=== PATIENT | male | born 1960 | race Caucasian/White ===

== ENCOUNTER 2017-09-26 07:03 | Outpatient (CLI) | payer MEDICARE ==
--- OUTSIDE RECORDS SUMMARY | 2017-09-26 07:07 | XMS | Clinical Summary ---
:[address] [facility] Address [address] [place] [address] Phone Care Team Providers Name Role Phone , Primary Care Provider Unavailable Allergies No Known Allergies Current Medications Prescription Sig. Disp. Refills Start Date End Date Status apixaban (ELIQUIS) 5 Take 1 tablet 60 tablet 2 06/23/2017 Active mg Tab tablet (5 mg total) by mouth 2 (two) times daily. glipiZIDE Take 1 tablet 30 tablet 11 06/23/2017 06/23/20 Active (GLUCOTROL) 5 MG (5 mg total) 18 tablet by mouth every morning before breakfast. magnesium oxide Take 1 tablet 60 tablet 11 06/23/2017 06/23/20 Active (MAG-OX) 400 mg (400 mg total) 18 tablet by mouth 2 (two) times daily. pantoprazole Take 1 tablet 30 tablet 2 06/23/2017 Active (PROTONIX) 40 MG (40 mg total) tablet by mouth daily. pravastatin Take 1 tablet 30 tablet 11 06/23/2017 06/23/20 Active (PRAVACHOL) 40 MG (40 mg total) 18 tablet by mouth nightly. tacrolimus (PROGRAF) Take 3 180 capsule 2 06/23/2017 06/23/20 Active 0.5 MG capsule capsules (1.5 18 mg total) by mouth every 12 (twelve) hours. sulfamethoxazole-tri Take 1 tablet Active methoprim by mouth (BACTRIM,SEPTRA) daily. 400-80 mg per tablet mycophenolate Take 1,000 mg Active (CELLCEPT) 250 mg by mouth 2 capsule (two) times daily . amLODIPine (NORVASC) Take 1 tablet 90 tablet 3 07/01/2017 Active 5 MG tablet (5 mg total) by mouth daily. predniSONE Take 5 mg by Active (DELTASONE) 5 MG mouth daily. tablet ferrous sulfate 325 Take 325 mg by Active (65 FE) MG tablet mouth daily with breakfast . cholecalciferol Take 2,000 Active (VITAMIN D3) 1,000 Units by mouth unit tablet daily. valGANciclovir Take 2 tablets 60 tablet 6 08/05/2017 08/05/20 Active (VALCYTE) 450 mg (900 mg total) 18 tablet by mouth daily. docusate sodium Take 100 mg by Active (COLACE) 100 MG mouth 2 (two) capsule times daily. naloxegol 12.5 mg Take 1 tablet 30 tablet 2 06/23/2017 09/25/20 Discontinued Oral Tab tablet (12.5 mg 17 total) by mouth daily. theophylline Take 1 capsule 60 capsule 2 06/23/2017 09/25/20 Discontinued (STEFFANIE-24) 200 MG 24 (200 mg total) 17 hr capsule by mouth every 12 (twelve) hours. clotrimazole Place 10 mg 09/25/20 Discontinued (MYCELEX) 10 mg inside cheek 3 17 louisa (three) times daily. terbutaline Take 7.5 mg by 09/25/20 Discontinued (BRETHINE) 5 mg mouth 3 17 tablet (three) times daily. HYDROcodone-acetamin Take 1 tablet 09/25/20 Discontinued ophen (NORCO 5-325) by mouth every 17 5-325 mg per tablet 6 (six) hours as needed for Pain. terbutaline Take 1 tablet 0 09/25/2017 09/25/20 Discontinued (BRETHINE) 5 mg (5 mg total) 17 tablet by mouth 3 (three) times daily. Active Problems Problem Noted Date Hypophosphatemia 07/01/2017 Chronotropic incompetence 06/09/2017 Hyperglycemia 06/09/2017 Acute blood loss anemia 06/02/2017 S/P orthotopic heart transplant + DDKT (06/01) 06/01/2017 Last Assessment & Plan: He is doing well s/p cardiac and kidney transplant. He has no evidence of recurrent disease at this time. S/P kidney transplant 06/01/2017 Last Assessment & Plan: S/p kidney transplant from 06/01/2017. He is producing adequate amounts of urine and has no evidence of recurrent disease. Acute pulmonary insufficiency following thoracic surgery ([facility]) 06/01/2017 Last Assessment & Plan: Not on any O2, no SOB at rest -Continue to mobilize as tolerated Shock circulatory ([facility]) 06/01/2017 Acute hyperkalemia 06/01/2017 Metabolic acidosis 06/01/2017 Immunosuppressed status ([facility]) 06/01/2017 Last Assessment & Plan: He denies headaches or tremors with his immunosuppression. We will adjust his dose according to his levels. Cardiogenic shock ([facility]) 05/16/2017 Last Assessment & Plan: S/p cardiac transplant 05/31/17 On intra-aortic balloon pump assist 05/16/2017 Acute on chronic combined systolic (congestive) and diastolic (congestive) heart failure Cardiomyopathy, ischemic Last Assessment & Plan: S/p heart transplant (05/31/17) ESRD (end stage renal disease) ([facility]) Last Assessment & Plan: S/p kidney transplant (06/01/17) -reports good UOP CAD (coronary artery disease) Last Assessment & Plan: Continue medications as prescribed. Continue follow up with cardiology. Type 2 diabetes mellitus Last Assessment & Plan: Blood glucoses are controlled on current therapy. Continue current regimen. Hyperlipidemia Resolved Problems Problem Noted Date Resolved Date Awaiting organ transplant status 06/01/2017 Encounters Date Type Specialty Care Team Description 09/25/2017 Evaluation Transplant O'Deloris, Kidney transplanted Aurelia Urbano MD (Primary Dx) Qian Agee MD 09/25/2017 Follow-Up Transplant O'Aurelia Puentes MD Butkevich, Alexander, MD 09/25/2017 Orders Only Transplant O'Deloris, S/P kidney transplant Hepatology Aurelia Urbano MD 08/28/2017 Evaluation Transplant O'Deloris, Kidney transplanted Aurelia Urbano MD (Primary Dx) Yris Vick MD 08/28/2017 Orders Only Transplant O'Deloris, S/P kidney transplant Hepatology Aurelia Urbano MD 08/28/2017 Telephone Transplant Andres Follow-up Santana Shipley RN 08/27/2017 Abstract Transplant Santana Campos RN 08/27/2017 Abstract Transplant Krystal Naqvi 08/21/2017 Orders Only Lab H/O heart transplant ([facility]) (Primary Dx) 08/21/2017 Ancillary Orders Lab Arya Santana MD 08/07/2017 Telephone Transplant Jennifer Hill Appointment (change in M clinic appt) 08/05/2017 Evaluation Transplant O'Deloris, S/P kidney transplant Aurelia Urbano MD (Primary Dx) Oneida Moyer MD 08/05/2017 Orders Only Transplant O'Deloris, S/P kidney transplant Hepatology Aurelia Urbano MD 08/05/2017 Orders Only Transplant Mari aIsabel Willis RN 07/30/2017 Abstract Transplant Jennifer Hill 07/25/2017 Telephone Transplant Jennifer Hill Appointment (r/s appt M from this wk) 07/21/2017 Telephone Transplant Blanca Cuellar RN 07/18/2017 Telephone Transplant Irma Lawson, Follow-up Hepatology RN 07/15/2017 Orders Only Transplant David Mcdonnell S/P kidney transplant Brenda Lamar MD 07/15/2017 Evaluation Transplant David Mcdonnell S/P kidney transplant MD Brianda (Primary Dx) 07/15/2017 Evaluation Transplant David Mcdonnell S/P kidney transplant MD Brianda (Primary Dx);S/P orthotopic heart transplant + DDKT (06/01);Immunosuppressed status (HCC) 07/11/2017 Abstract Transplant Santana Campos RN 07/10/2017 Orders Only Lab H/O heart transplant (HCC) (Primary Dx) 07/10/2017 Ancillary Orders Lab Arya Santana MD 07/09/2017 Telephone Transplant Jennifer Hill Appointment (f/u M appts) 07/08/2017 Emergency Emergency Jonna Sheffield MD Hypophosphatemia Medicine (Primary Dx);S/P orthotopic heart transplant + DDKT (06/01) 07/08/2017 Follow-Up Transplant Max, Kriss on chronic MD Arya combined systolic (congestive) and diastolic (congestive) heart failure (HCC) (Primary Dx) 07/08/2017 Orders Only Transplant O'Deloris, S/P kidney transplant Hepatology Aurelia Urbano MD 07/08/2017 Documentation Transplant Tamra Matson, BHARATI 07/03/2017 Orders Only Transplant Jung, Sarkis Naveen, S/P kidney transplant Hepatology MD 07/03/2017 Telephone Transplant Meagan Schumacher Follow-up 07/02/2017 Telephone Transplant Tamra Matson, third helper Dose Change 07/01/2017 Emergency Emergency MorisSarkis Hypophosphatemia Medicine MD Juancarlos (Primary Dx) Jeovany Olivera MD 07/01/2017 Evaluation Transplant OIram S/P kidney transplant Aurelia Urbano MD (Primary Dx) Rhina Lepe MD 07/01/2017 Evaluation Transplant OIram, S/P kidney transplant Aurelia Urbano MD (Primary Lands, Kayla Dx);Cardiomyopathy, ELIA Chaudhry ischemic;ESRD (end stage renal disease) (HCC);Type 2 diabetes mellitus with retinopathy, without long-term current use of insulin, macular edema presence unspecified, unspecified laterality, unspecified retinopathy severity (HCC);Cardiogenic shock (HCC) 07/01/2017 Orders Only Transplant David Mcdonnell/P kidney transplant Hepatology MD Brianda 07/01/2017 Orders Only Transplant Santana Campos RN 07/01/2017 Ancillary Orders Lab Aurelia Maria MD 07/01/2017 Orders Only Transplant S/P kidney transplant Hepatology 06/27/2017 Orders Only Lab Max, Heart transplant MD Arya status (HCC) (Primary Dx) 06/27/2017 Abstract Transplant Santana Campos RN from Last 3 Months Immunizations Name Dates Previously Given Next Due SHINGLES VARICELLA (ZOSTAVAX) ZOSTER 07/11/2016 Social History Tobacco Use Types Packs/Day Years Used Date Never Smoker Smokeless Tobacco: Never Used Alcohol Use Drinks/Week oz/Week Comments No Sex Assigned at Date Recorded Not on file Last Filed Vital Signs Vital Sign Reading Time Taken Blood Pressure 137/98 09/25/2017 2:11 PM CDT Pulse 109 09/25/2017 2:11 PM CDT Temperature 36.5 C (97.7 F) 09/25/2017 2:11 PM CDT Respiratory Rate 18 09/25/2017 2:11 PM CDT Oxygen Saturation 98% 09/25/2017 2:11 PM CDT Inhaled Oxygen Concentration - - Weight 99.6 kg (219 lb 9.6 oz) 09/25/2017 2:11 PM CDT Height 195.6 cm (6' 5") 09/25/2017 2:11 PM CDT Body Mass Index 26.04 09/25/2017 2:11 PM CDT Plan of Treatment Health Maintenance Due Date Last Done Comments INFLUENZA VACCINE 08/24/2017 Implants Implanted Type Area Electronics Instructor Device Expiration Model / Identifier Date Serial / Lot Stent Uret Polaris [id number] - [id number] Uro Stent Left: [employer] 2019 [id number] / Implanted:Qty: 1 on 06/01/2017 by Cesar Prado MD Ureter SCI: UROLOGY/GYNE / COLOGY Results Urinalysis w/Microscopic + Reflex to Cul (09/25/2017 7:11 AM)Only the most recent of7 resultswithin the time period is included. Component Value Ref Range Color, UA Yellow Clarity, UA Clear Specific [place], UA 1.025 1.001 - 1.035 pH, UA 6.0 5.0 - 8.0 Protein, UA 10 mg/dL(A) Negative Glucose, UA Negative Negative Ketones, UA Negative Negative Bilirubin, UA Negative Negative Blood, UA Trace(A) Negative Nitrite, UA Negative Negative Leukocytes, UA Negative Negative Urobilinogen, UA 0.2 0.2 - 1.0 mg/dL RBC, UA 1 /HPF WBC, UA 1 /HPF Mucus Rare Squam Epithel, UA <1 /HPF Specimen Source Specimen Performing Laboratory Urine [facility] [address] [address] CBC with platelet count + automated diff (09/25/2017 7:11 AM)Only the most recent of8 resultswithin the time period is included. Component Value Ref Range WBC 4.2 3.5 - 10.5 K/L RBC 4.56(L) 4.63 - 6.08 M/L Hemoglobin 13.1(L) 13.7 - 17.5 GM/DL Hematocrit 41.8 40.1 - 51.0 % MCV 91.7 79.0 - 92.2 fL MCH 28.7 25.7 - 32.2 pg MCHC 31.3(L) 32.3 - 36.5 GM/DL RDW 14.3 11.6 - 14.4 % Platelets 166 150 - 450 K/CU MM MPV 9.5 9.4 - 12.4 fL nRBC 0 0 - 0 /100 WBC % Neutros 72 % % Lymphs 19 % % Monos 6 % % Eos 1 % % Baso 1 % # Neutros 3.03 1.78 - 5.38 K/L # Lymphs 0.79(L) 1.32 - 3.57 K/L # Monos 0.25(L) 0.30 - 0.82 K/L # Eos 0.06 0.04 - 0.54 K/L # Baso 0.05 0.01 - 0.08 K/L Immature Granulocytes-Relative 0 0 - 1 % Specimen Performing Laboratory Blood [address] [address] Tacrolimus Level (09/25/2017 7:11 AM)Only the most recent of7 resultswithin the time period is included. Component Value Ref Range Tacrolimus Lvl 5.0(L) 10.0 - 20.0 ng/mL Specimen Performing Laboratory Blood [address] [address] CBC w/PLT Count& Auto Differential (09/25/2017 7:11 AM)Only the most recent of8 resultswithin the time period is included. Specimen Performing Laboratory Blood [facility] ([facility]) Narrative The following orders were created for panel order CBC w/PLT Count & Auto Differential. Procedure Abnormality Status --------- ------ CBC with platelet count ...[[id number]]AbnormalFinal result Please view results for these tests on the individual orders. Phosphorus (09/25/2017 7:11 AM)Only the most recent of7 resultswithin the time period is included. Component Value Ref Range Phosphorus 2.8 2.3 - 4.7 mg/dL Specimen Performing Laboratory [address] [address] Lactate Dehydrogenase (LDH) (09/25/2017 7:11 AM)Only the most recent of7 resultswithin the time period is included. Component Value Ref Range LDH 208 125 - 220 U/L Specimen Performing Laboratory Blood [address] [address] Comprehensive Metabolic Panel (09/25/2017 7:11 AM)Only the most recent of7 resultswithin the time period is included. Component Value Ref Range Protein, Total 6.3 6.0 - 8.3 gm/dL Albumin 3.9 3.5 - 5.0 g/dL Alkaline Phosphatase 129 40 - 150 U/L Total Bilirubin 0.6 0.2 - 1.2 mg/dL Sodium 140 136 - 145 meq/L Potassium 4.1 3.5 - 5.1 meq/L Chloride 108(H) 98 - 107 meq/L CO2 26 22 - 29 meq/L BUN 22(H) 7 - 21 mg/dL Creatinine 0.77 0.57 - 1.25 mg/dL Glucose 103 70 - 105 mg/dL Calcium 9.8 8.4 - 10.2 mg/dL AST 14 5 - 34 U/L ALT 16 6 - 55 U/L EGFR 104Comment:ESTIMATED GFR IS NOT ACCURATE mL/min/1.73 sq m CREATININE CLEARANCE IN PREDICTING GLOMERULAR FILTRATION RATE. ESTIMATED GFR IS NOT APPLICABLE FOR DIALYSIS PATIENTS. Specimen [place] [address] BK virus PCR, plasma Once every 3 Months (08/28/2017 7:05 AM)Only the most recent of2 resultswithin the time period is included. Component Value Ref Range BK Virus PCR, Plasma Negative or below the linear range of the assay (<1,000 copies/mL) Specimen Performing Laboratory Blood [address] [address] Narrative Patients may have replicating BK Virus which is of no clinical significance. Viral load measurements are helpful to identify BK Virus replication of potential clinical significance.Consensus recommendations have been published of threshold values for the presumptive diagnosis of polyomavirus-associated nephropathy ( Transplantation 2005;79:4630-8774). A BK Virus load greater than 5,000-10,000 copies/mL in the plasma is consistent with the presumptive diagnosis of polyoma-associated nephropathy in renal transplant recipients. BK Virus DNA was assessed using quantitative polymerase chain reaction and fluorescent monitoring of a specific hybridized probe.Genetic variation and other factors can affect the accuracy of nucleic acid testing.Therefore, the results should be interpreted in light of clinical data. This test was developed and its performance characteristics determined by the [facility] Pathology Department, Section of Molecular Pathology. It has not been cleared or approved bythe U.S. Food and Drug Administration (FDA). Since FDA approval is not required for clinical use of the test, validation was done as required by the Clinical Laboratory Improvement Amendments of 1988. Tissue Exam (08/21/2017 4:52 PM)Only the most recent of3 resultswithin the time period is included. Component Value Ref Range Case Report Surgical Pathology Report Case: [id number] Authorizing Provider:Arya Santana MD Collected: 08/21/20171651 [facility] Patient LabReceived: 08/21/20171651 Pathologist: Jori Ledbetter MD Specimen:Heart, HEART TRANSPLANT DIAGNOSIS HEART, RIGHT VENTRICLE, BIOPSY: MILD ACUTE CELLULAR REJECTION (ISHLT 1R) C4D IMMUNOFLUORESCENCE IS NEGATIVE (AMR 0) Signing Pathologist Direct Phone Line: [phone] COMMENT The preliminary results were reported to the heart sports coordinator on 08/22/17 at 11:15 am. The final results were reported to the heart sports coordinator voicemail on 08/22/17 at 4:49 pm. CPT Code(s) 32620; 36164 CLINICAL HISTORY Status post heart transplant SPECIMEN SOURCE RV biopsy GROSS DESCRIPTION Received in formalin labeled with the patient's information only are three dark ramirez irregular fragments of soft tissue measuring 0.2 x 0.3 x 0.1 cm in aggregate. The specimen is entirely submitted incassette A1. Also received in saline is labeled with the patient's information only is a 0.3 cm in greatest dimension dark brown irregular fragment of soft tissue which is frozen and entirely submitted for immunofluorescence study. DB/pl MICROSCOPIC DESCRIPTION Performed Specimen Performing Laboratory Tissue - Heart [address] [address] Urine culture (07/15/2017 8:59 AM)Only the most recent of2 resultswithin the time period is included. Component Value Ref Range Result 90-99,000 col/mL Enterobacter aerogenes(A) Specimen Performing Laboratory Urine - Urine, Unspecified Source [address] [address] Narrative Enterobacter aerogenes: High Level Case (AmpC) Organism Antibiotic Method Susceptibility Enterobacter aerogenes Amikacin 4: Susceptible Enterobacter aerogenes Aztreonam >=64: Resistant Enterobacter aerogenes Cefepime >=64: Resistant Enterobacter aerogenes Cefoxitin >=64: Resistant Enterobacter aerogenes Ceftazidime >=64: Resistant Enterobacter aerogenes Ceftriaxone >=64: Resistant Enterobacter aerogenes Ertapenem <=0.5: Susceptible Enterobacter aerogenes Gentamicin >=16: Resistant Enterobacter aerogenes Levofloxacin 4: Resistant Enterobacter aerogenes Meropenem <=0.25: Susceptible Enterobacter aerogenes Nitrofurantoin 64: Resistant Enterobacter aerogenes Piperacillin + Tazobactam >=128: Resistant Enterobacter aerogenes Tetracycline >=16: Resistant Enterobacter aerogenes Tobramycin >=16: Resistant Enterobacter aerogenes Trimethoprim + Sulfamethoxazole >=320: Resistant RHYTHM STRIP - SCAN (07/11/2017 7:42 PM)Basic metabolic panel (Na, K+, Cl, CO2 , Glu, Ca, BUN, Cr) (07/08/2017 1:37 PM) Component Value Ref Range Sodium 137 136 - 145 meq/L Potassium 4.1 3.5 - 5.1 meq/L Chloride 107 98 - 107 meq/L CO2 20(L) 22 - 29 meq/L BUN 18 7 - 21 mg/dL Creatinine 0.97 0.57 - 1.25 mg/dL Glucose 148(H) 70 - 105 mg/dL Calcium 9.5 8.4 - 10.2 mg/dL EGFR 79Comment:ESTIMATED GFR IS NOT ACCURATE CREATININE mL/min/1.73 sq m CLEARANCE IN PREDICTING GLOMERULAR FILTRATION RATE. ESTIMATED GFR IS NOT APPLICABLE FOR DIALYSIS PATIENTS. Specimen Performing Laboratory Blood [address] [address] ECG 12 lead (07/08/2017 10:23 AM) Specimen Performing Laboratory [facility] Narrative Ventricular Rate 113 BPM Atrial Rate 113 BPM P-R Interval 126 ms QRS Duration 78 ms Q-T Interval 324 ms QTC Calculation(Bazett) 444 ms P [place] 27 degrees R [place] -86 degrees T [place] 63 degrees Sinus tachycardia Left axis deviation Low voltage QRS Incomplete right bundle branch block Possible anterolateral infarct, age undetermined Inferior infarct (cited on or before 06-JUN-2017) T wave inversion anterior leads: secondary to iRBBB? postischemic changes? Abnormal ECG When compared with ECG of 06-JUN-2017 06:44, Sinus rhythm has replaced Junctional rhythm Incomplete right bundle branch block now present Borderline criteria for anterolateral infarctare now Present Questionable change in initial forces of Inferior leads T wave inversion now seen anterior leads Confirmed by MD KAN, LEWIS ([id number]) on 07/09/2017 6:16:08 AM Procedure Note Interface, External Ris In - 07/09/2017 6:16 AM CDT Ventricular Rate 113 BPM Atrial Rate 113 BPM P-R Interval 126 ms QRS Duration 78 ms Q-T Interval 324 ms QTC Calculation(Bazett) 444 ms P [place] 27 degrees R [place] -86 degrees T [place] 63 degrees Sinus tachycardia Left axis deviation Low voltage QRS Incomplete right bundle branch block Possible anterolateral infarct , age undetermined Inferior infarct (cited on or before 06-JUN-2017) T wave inversion anterior leads: secondary to iRBBB? postischemicchanges? Abnormal ECG When compared with ECG of 06-JUN-2017 06:44, Sinus rhythm has replaced Junctional rhythm Incomplete right bundle branch block now present Borderline criteria for anterolateral infarct are now Present Questionable change in initial forces of Inferior leads T wave inversion now seen anterior leads Confirmed by MD KAN, LEWIS ([id number]) on 07/09/2017 6:16:08 AM from Last 3 Months
--- NOTE | 2017-09-26 10:22 | MRI ---
MRI LUMBAR SPINE NONCONTRAST: HISTORY: Low back pain without radiculopathy. COMPARISON: None. FINDINGS: Radiographs are not available for direct correlation; therefore, the lowest lumbar type vertebra lizbeth l be designated as L5, with the remainder numbered accordingly. The conus medullaris has a normal a ppearance. There is desiccation of all remaining vertebral disks. Images, including the retroperit oneum, show cysts arising from the cortex of the kidneys. There is also atrophy of the renal cortex . T12-L1: Mild osteophytosis is present. The central canal and neural foramina are patent. L1-L2: There is disk space narrowing. Posterior disk bulge, along with facet joint hypertrophy and ligamentous thickening, result in mild to moderate stenosis of the central canal. There is moderat e right and mild to moderate left foraminal stenoses. L2-L3: There is disk space narrowing. Posterior disk bulge, along with facet joint hypertrophy and ligamentous thickening, result in mild stenosis of the central canal and each neural foramen. L3-L4: Significant disk space narrowing is present. Posterior disk bulge, along with facet joint h ypertrophy and ligamentous thickening, result in severe stenosis of the central canal and each neura l foramen. L4-L5: Osteophytosis is present. The thecal sac is patent. There is mild right and moderate left foraminal stenosis. L5-S1: Mild osteophytosis is present. The central canal and neural foramina are patent. IMPRESSION: Multilevel degenerative changes throughout the lumbar spine, with central canal and foraminal stenos es, most severe at the L3-L4 level, as detailed above. POS: FRANDY
== END 2017-09-26 07:04 | disposition home or self-care (01) ==
LOC: MRI 07:03
PROVIDERS: ATTEND Nurse Practitioner Family
DX: M47.816 Spondylosis without myelopathy or radiculopathy, lumbar region (principal); M48.061 Spinal stenosis, lumbar region without neurogenic claudication; M86.171 Other acute osteomyelitis, right ankle and foot
CPT/HCPCS: 72148

== ENCOUNTER 2017-11-21 06:45 | Outpatient (CLI) | payer MEDICARE | END 2017-11-21 06:46 | disposition home or self-care (01) | LOC: BICMRI 06:45 | PROVIDERS: ATTEND Emergency Medicine Sports Medicine | DX: M75.122 Complete rotator cuff tear or rupture of left shoulder, not specified as traumatic (principal); M19.012 Primary osteoarthritis, left shoulder; M67.814 Other specified disorders of tendon, left shoulder ==

== ENCOUNTER 2017-11-28 08:57 | Outpatient (CLI) | payer MEDICARE | END 2017-11-28 08:58 | disposition home or self-care (01) | LOC: BICMRI 08:57 | PROVIDERS: ATTEND Emergency Medicine Sports Medicine | DX: M47.22 Other spondylosis with radiculopathy, cervical region (principal); Z94.0 Kidney transplant status | CPT/HCPCS: 72141 ==

== ENCOUNTER 2018-01-20 14:01 | Day surgery (SDC) | payer MEDICARE ==
[2018-01-20 14:35] VITALS: BP 143/102
== END 2018-01-20 15:36 | disposition home or self-care (01) ==
LOC: ONC/OP 14:01
PROVIDERS: ATTEND Internal Medicine Nephrology
DX: D75.1 Secondary polycythemia (principal); I12.0 Hypertensive chronic kidney disease with stage 5 chronic kidney disease or end stage renal disease; E11.22 Type 2 diabetes mellitus with diabetic chronic kidney disease; N18.6 End stage renal disease; E11.40 Type 2 diabetes mellitus with diabetic neuropathy, unspecified; I25.10 Atherosclerotic heart disease of native coronary artery without angina pectoris; Z95.1 Presence of aortocoronary bypass graft; Z99.2 Dependence on renal dialysis; Z95.810 Presence of automatic (implantable) cardiac defibrillator; Z98.890 Other specified postprocedural states
CPT/HCPCS: 99195

== ENCOUNTER 2018-07-08 13:41 | Outpatient (CLI) | payer MEDICARE | END 2018-07-08 13:42 | disposition home or self-care (01) | LOC: BICRAD 13:41 | PROVIDERS: ATTEND Specialist | DX: M47.812 Spondylosis without myelopathy or radiculopathy, cervical region (principal); M43.12 Spondylolisthesis, cervical region | CPT/HCPCS: 36415; 72050; 72141; 80053; 80197; 81003; 83615; 84100; 85025 ==

== ENCOUNTER 2018-10-28 11:51 | Outpatient (CLI) | payer MEDICARE ==
[2018-10-28 13:03] LABS: Hemoglobin 17.4 g/dL (14.0-18.0); Mean Corpuscular HGB CONC 32.9 g/dL (32.0-36.0); Mean Corpuscular Hemoglobin 29.7 pg (27.0-31.0); Mean Corpuscular Volume 90.1 fL (78.0-98.0); Mean Platelet Volume 7.2 fL (7.4-10.4); Platelet Count 186 thou/uL (130-400); RBC Distribution Width 12.7 % (11.5-14.5); Red Blood Cell (RBC) Count 5.86 mill/uL (4.70-6.10); White Blood Cell (WBC) Count 10.5 thou/uL (4.8-10.8)
[2018-10-28 13:32] LABS: Anion Gap 10 mmol/L (10-20); BUN (Urea Nitrogen) 17 mg/dL (8.4-25.7); Calc. Creatinine Clearance 0 mL/min (70-130); Calcium 9.7 mg/dL (7.8-10.44); Carbon Dioxide 28 mmol/L (22-29); Chloride 102 mmol/L (98-107); Estimated GFR-MDRD 68; Glucose 181 mg/dL (70-105); Potassium 4.8 mmol/L (3.5-5.1); Sodium 135 mmol/L (136-145)
--- NOTE | 2018-10-28 22:08 | EKG ---
Test Reason : Blood Pressure : / mmHG Vent. Rate : 091 BPM Atrial Rate : 091 BPM P-R Int : 152 ms QRS Dur : 098 ms QT Int : 330 ms P-R-T Axes : 026 -81 057 degrees QTc Int : 405 ms Normal sinus rhythm Left axis deviation Incomplete right bundle branch block Inferior infarct , age undetermined Anterolateral infarct , age undetermined Abnormal ECG When compared with ECG of 22-DEC-2016 19:55, Sinus rhythm has replaced Electronic ventricular pacemaker Confirmed by Mario Alberto FAUST ([id number]) on 10/28/2018 10:07:42 PM Referred By: YUMI Confirmed By:Mario Alberto FAUST
== END 2018-10-28 11:52 | disposition home or self-care (01) ==
LOC: LABBT 11:51
PROVIDERS: ATTEND Neurological Surgery
DX: Z01.818 Encounter for other preprocedural examination (principal); M50.30 Other cervical disc degeneration, unspecified cervical region
CPT/HCPCS: 80048; 85027; 93005; 93010

== ENCOUNTER 2018-10-29 05:52 | Day surgery (SDC) | payer MEDICARE ==
[2018-10-28 11:59] VITALS: BMI 27.6
[2018-10-29] MEDS ORDERED: Sodium Chloride 0.9% 10 ML ONE (06:30)
[2018-10-29] MEDS ORDERED: CEFAZOLIN 2 GM/50 ML BAG ONE (06:31)
[2018-10-29] MEDS ORDERED: HYDROmorphone 0.5 MG/0.5 ML SYRINGE ONE (08:13)
[2018-10-29] MEDS ORDERED: SUGAMMADEX SODIUM 200 MG/2 ML VIAL ONE (08:16)
[2018-10-29] MEDS ORDERED: Dexamethasone 20 MG/5 ML VIAL ONE (11:41)
[2018-10-29] MEDS ORDERED: Glycopyrrolate 0.2 MG/ML 5 ML SYRINGE ONE (11:41)
[2018-10-29] MEDS ORDERED: PROPOFOL 200 MG/20 ML VIAL ONE (11:41)
[2018-10-29] MEDS ORDERED: Lidocaine 1% PF 5 ML VIAL ONE (11:41)
[2018-10-29] MEDS ORDERED: Ondansetron PF 4 MG/2 ML Vial ONE (11:41)
[2018-10-29] MEDS ORDERED: Metoprolol Tartrate 5 MG/5 ML VIAL ONE (11:41)
--- NOTE | 2018-10-30 09:29 | OP ---
DATE OF PROCEDURE: 10/29/2018 WEED SPRAYER: Boo. PROCEDURES: 1. Anterior cervical diskectomy C6-C7, interbody arthrodesis. 2. Biomechanical device, local morselized autograft, demineralized bone matrix, anterior titanium fixation C6-C7. DESCRIPTION OF PROCEDURE: The patient was brought to the operating room and intubated. He was positioned in supine, head fixed and with gel-filled dounut. An incision was made in the right pre-cervical area and dissected medial to the sternocleidomastoid muscle. We identified the anterior cervical spine and the level was confirmed by x-ray. We placed distraction across the disk and using the operating microscope and microdissection techniques, completely removed the intervertebral disk at C6-C7 and there was a very large herniation at left C6-C7 migrated inferiorly. With some difficulty, it was removed in multiple fragments. A complete decompression was achieved. The wound was then extensively irrigated and the bony endplates were decorticated for the first arthrodesis. An appropriate-sized intervertebral biomechanical PEEK device was on the field, filled demineralized bone matrix, local morselized autograft and tapped in place securely at C6-C7. Next, an anterior plate was brought on the field and secured to C6 and C7 using two 40 mm screws at each level. The wound was then extensively irrigated, maximum hemostasis was secured and the wound was closed in anatomic layers. Job ID: [id number]
== END 2018-10-29 10:47 | disposition home or self-care (01) ==
LOC: SDC 05:52
PROVIDERS: ATTEND Neurological Surgery
PROC: 0RG10A0 Fusion of Cervical Vertebral Joint with Interbody Fusion Device, Anterior Approach, Anterior Column, Open Approach (ICD-10-PCS; principal; 2018-10-29)
DX: M50.223 Other cervical disc displacement at C6-C7 level (principal); M50.31 Other cervical disc degeneration, high cervical region; M50.322 Other cervical disc degeneration at C5-C6 level; I42.9 Cardiomyopathy, unspecified; I10 Essential (primary) hypertension; E11.9 Type 2 diabetes mellitus without complications; E78.5 Hyperlipidemia, unspecified; Z94.1 Heart transplant status; Z94.0 Kidney transplant status; Z79.52 Long term (current) use of systemic steroids; Z79.4 Long term (current) use of insulin; Z79.82 Long term (current) use of aspirin; Z79.899 Other long term (current) drug therapy
CPT/HCPCS: 20930; 20936; 22551; 22853; 76001; 82962; C1713; C1776; 36416; J1100; J1170; J2001; J2405; J2704; J3490

== ENCOUNTER 2018-11-11 15:46 | Outpatient (CLI) | payer MEDICARE ==
--- NOTE | 2018-11-11 17:31 | RAD ---
THREE VIEWS OF THE CERVICAL SPINE: 11/11/18 COMPARISON: None. HISTORY: Status post neck surgery. Postoperative followup. COMPARISON: 08/09/15. FINDINGS: Three views of the cervical spine shows the patient to be status post anterior fusion of C6 and C7 wi th a plate and screws. An intervening disc spacer is seen in the disc space. No prevertebral soft tis awais swelling is seen. Vertebral bodies demonstrate normal alignment without subluxation. IMPRESSION: Postsurgical changes of the cervical spine without evidence of complication. POS: FRANDY
== END 2018-11-11 15:47 | disposition home or self-care (01) ==
LOC: TBSIIMAG 15:46
PROVIDERS: ATTEND Neurological Surgery
DX: M50.30 Other cervical disc degeneration, unspecified cervical region (principal); Z98.890 Other specified postprocedural states
CPT/HCPCS: 72040

== ENCOUNTER 2020-01-03 07:25 | Day surgery (SDC) | payer MEDICARE ==
[2019-12-31 15:21] VITALS: BMI 27.6
[2020-01-03 08:17] VITALS: BP 141/98; TEMP 98.4
--- NOTE | 2020-01-03 08:58 | RAD ---
CERVICAL MYELOGRAM: EXPOSURE: 0.7 minutes, 269.6 mGy*^m2. HISTORY: Cervical pain.. Degenerative disc disease. FINDINGS: Two-view testing machine operator lumbar spine radiograph demonstrates 5 lumbar-type vertebrae. Lumbar spine vertebral b yosef height is maintained. No fracture. Vacuum disc phenomenon with sclerosis and osteophyte formation at L3-L4. Straightening of lumbar lordosis. No spondylolisthesis or spondylolysis. Atherosc lerosis of the aorta and iliac vessels is noted. Visualized bony pelvis and sacrum are unremarkable. Two-view testing machine operator cervical spine radiograph demonstrates an anterior fusion plate at C6-C7. No perihardw are lucency. There is a C6-C7 disc prosthesis. Grade 1 anterolisthesis of C3 upon C4 and C5 upon C6. On the AP projection, multilevel facet arthropa thy. Sternotomy wires are noted. A portion of a defibrillator lead is identified. Atherosclerosis of the aorta. Successful lumbar puncture. A total of 9 cc of Isovue-M 370 contrast was administered at the L2-L3 le shan. No immediate or postprocedure complications. TECHNIQUE: Consent obtained to perform a lumbar puncture for cervical myelogram. Patient's back was evaluated. T he L2-L3 level was deemed appropriate. Skin was prepped and draped in a sterile fashion. 1% lidocaine, buffered with was used for local anesthesia. Under fluoroscopic guidance, a 22-gauge spi nal needle was advanced into the CSF space. There is prompt flow of clear CSF via the hub of the needle. A total of 370 was administered. Patient tolerated the procedure well. No immediate or postpr ocedure complications. IMPRESSION: Successful lumbar puncture for cervical myelogram. Transcribed Date/Time: 01/03/2020 9:42 AM
--- NOTE | 2020-01-03 09:40 | CT ---
POSTMYELOGRAM CERVICAL SPINE CT: HISTORY: Cervical degenerative disc disease. Cervical pain. COMPARISON: None. TECHNIQUE: Cervical spine CT is performed in the axial length. Three-dimensional reformatted images are submitte d FINDINGS: No craniocervical dissociation. Appropriate alignment of the lateral masses of C1 and C2. Intact odon toid process. Uncomplicated cervical fusion at C6-C7. No perihardware lucency. C6-C7 disc prosthesis is identified. Near complete fusion of the disc space. No cervical spine fractures. Spondylolisthesis: 3.7 mm of anterolisthesis of C3 upon C4. Visualized soft tissue neck structures are grossly unremarkable. Large calcification in the right thy roid lobe. 1.1 x 0.9 cm hypodensity in the left thyroid lobe. No evidence of lymphadenopathy. Upper mediastinum and lung apices are unremarkable. C2-C3: Central disc herniation. No significant central canal stenosis or significant neural foraminal . C3-C4: Vacuum disc phenomenon with moderate loss of disc space height. Broad-based disc-osteophyte co mplex does cause mass effect upon the cervical cord. Moderate central canal stenosis. Moderate bilateral foraminal narrowing due to uncovertebral and to a lesser extent facet hypertrophy. C4-C5:Broad-based disc-osteophyte complex with a central herniation. There is mass effect upon the ce rvical cord. Moderate central canal stenosis. Mild bilateral foraminal due to uncovertebral hypertrophy. C5-C6: Broad-based disc-osteophyte complex with a central herniation. There is disc desiccation. Ther e is deformity of the cervical cord. Moderate central canal stenosis. Bilaterally, neural foramina are patent. C6-C7:Fusion with prosthesis. Broad-based osteophyte ridge without significant central canal stenosis . Bilaterally, neural foramina are patent. C7-T1: No significant central canal stenosis. Bilaterally, neural foramina are patent. IMPRESSION: 1. Degenerative changes of the cervical spine as detailed above. 2. Postsurgical changes of the cervical spine as detailed above. Transcribed Date/Time: 01/03/2020 9:46 AM
[2020-01-03] MEDS ORDERED: Iopamidol-M 300 61% 15 ML VIAL ONE (16:01)
== END 2020-01-03 10:00 | disposition home or self-care (01) ==
LOC: RAD 07:25
PROVIDERS: ATTEND Neurological Surgery
PROC: B01B1ZZ Fluoroscopy of Spinal Cord using Low Osmolar Contrast (ICD-10-PCS; principal; 2020-01-03)
DX: M50.21 Other cervical disc displacement, high cervical region (principal); M43.12 Spondylolisthesis, cervical region; E11.9 Type 2 diabetes mellitus without complications; E78.00 Pure hypercholesterolemia, unspecified; I10 Essential (primary) hypertension; N19 Unspecified kidney failure; Z79.84 Long term (current) use of oral hypoglycemic drugs; Z79.82 Long term (current) use of aspirin; Z79.899 Other long term (current) drug therapy
CPT/HCPCS: 62302; 72126; Q9967

== ENCOUNTER 2020-01-14 08:40 | Day surgery (SDC) | payer MEDICARE ==
[2020-01-13 11:57] VITALS: BMI 28.2
[2020-01-14] MEDS ORDERED: PROPOFOL 200 MG/20 ML VIAL ONE (09:44)
--- NOTE | 2020-01-14 12:01 | OP ---
DATE OF PROCEDURE: 01/14/2020 PREPROCEDURE DIAGNOSES: 1. Reflux, proton pump inhibitor dependent for the past 3 months, all symptoms resolved with proton pump inhibitor. 2. No dysphagia. 3. History of sleeve gastrectomy. 4. History of a heart and kidney transplant. POSTPROCEDURE DIAGNOSES: 1. Small hiatal hernia. 2. Otherwise normal gastric sleeve anatomy. 3. No signs of Aguilar's esophagus or esophagitis. RECOMMENDATIONS: 1. PPI therapy daily for control of reflux symptoms. 2. Antireflux regimen, small frequent meals. No large meals close to bedtime, elevate head of bed. 3. The patient does not smoke or drink alcohol. 4. Follow up in my office p.r.n. ANESTHESIA: TIVA. PROCEDURE IN DETAIL: After the patient was informed of the risks, benefits, and possible complications of endoscopy including perforation, bleeding, reaction to medication, and aspiration, informed consent was obtained. The patient was brought to the endoscopy suite, where he was sedated in gradual fashion. Once he was comfortable, a bite block was placed inside the orifice. The endoscope was advanced to the esophagus, stomach, and second and third portions of the duodenum and was slowly removed. The esophagus was normal. There was a normal GE junction. There was no evidence of inflammation or esophagitis. There was no evidence of Aguilar's esophagus. In the stomach, there was a small hiatal hernia, probably about 2 cm in length. There was no evidence of strictures or rings. The gastric lumen was consistent with previous sleeve gastrectomy. There was no evidence of strictures, retained gastric contents, or obstruction. The pyloric channel was normal. The duodenum was normal in the 3rd portion. The scope was removed. The patient tolerated the procedure well. There were no complications. Job ID: [id number]
== END 2020-01-14 12:10 | disposition home or self-care (01) ==
LOC: SDC 08:40
PROVIDERS: ATTEND Internal Medicine Gastroenterology
PROC: 0DJ08ZZ Inspection of Upper Intestinal Tract, Via Natural or Artificial Opening Endoscopic (ICD-10-PCS; principal; 2020-01-14)
DX: K21.9 Gastro-esophageal reflux disease without esophagitis (principal); K44.9 Diaphragmatic hernia without obstruction or gangrene; I11.0 Hypertensive heart disease with heart failure; I50.9 Heart failure, unspecified; I25.10 Atherosclerotic heart disease of native coronary artery without angina pectoris; Z79.4 Long term (current) use of insulin; Z79.52 Long term (current) use of systemic steroids; Z79.82 Long term (current) use of aspirin; Z79.899 Other long term (current) drug therapy; Z87.442 Personal history of urinary calculi; Z94.0 Kidney transplant status; Z94.1 Heart transplant status; Z95.1 Presence of aortocoronary bypass graft; Z95.810 Presence of automatic (implantable) cardiac defibrillator; Z98.84 Bariatric surgery status
CPT/HCPCS: 36416; J2704

== ENCOUNTER 2020-10-13 06:47 | Outpatient (CLI) | payer MEDICARE ==
[2020-10-14 03:15] LABS: SARS-CoV-2 MS2 Positive; SARS-CoV-2 N Gene Negative; SARS-CoV-2 S Gene Negative; SARS-CoV-2 by NAA Not Detected (NotDetected); SARS-CoV-2 orf1ab Negative
== END 2020-10-13 06:48 | disposition home or self-care (01) ==
LOC: LABBT 06:47
PROVIDERS: ATTEND Podiatrist Foot & Ankle Surgery
DX: Z01.812 Encounter for preprocedural laboratory examination (principal); Z20.828 Contact with and (suspected) exposure to other viral communicable diseases
CPT/HCPCS: 87635; U0003

== ENCOUNTER 2020-10-18 09:11 | Day surgery (SDC) | payer OTHER ==
[2020-10-17 09:09] VITALS: BMI 28.2
[2020-10-18 09:54] LABS: #Eosinphils 0.2 thou/uL (0.0-0.7); #Lymphocytes 0.8 thou/uL (1.20-3.40); #Monocytes 0.7 thou/uL (0.11-0.59); #Neutrophils 7.9 thou/uL (1.40-6.50); %Basophils 0.3 % (0.0-1.0); %Eosinophils 1.9 % (0.0-10.0); %Monocytes 7.1 % (0.0-10.0); %Neutrophils 82.7 % (42.0-75.0); Hemoglobin 14.3 g/dL (14.0-18.0); Mean Corpuscular HGB CONC 32.6 g/dL (32.0-36.0); Mean Corpuscular Hemoglobin 30.4 pg (27.0-31.0); Mean Corpuscular Volume 93.2 fL (78.0-98.0); Mean Platelet Volume 7.3 fL (7.4-10.4); Platelet Count 166 thou/uL (130-400); RBC Distribution Width 12.6 % (11.5-14.5); Red Blood Cell (RBC) Count 4.69 mill/uL (4.70-6.10); White Blood Cell (WBC) Count 9.6 thou/uL (4.8-10.8)
[2020-10-18 10:20] LABS: Anion Gap 12 mmol/L (10-20); BUN (Urea Nitrogen) 28 mg/dL (8.4-25.7); Calc. Creatinine Clearance 112 mL/min (70-130); Calcium 9.7 mg/dL (7.8-10.44); Carbon Dioxide 29 mmol/L (23-31); Chloride 103 mmol/L (98-107); Estimated GFR-MDRD 78; Glucose 164 mg/dL (80-115); Potassium 4.1 mmol/L (3.5-5.1); Sodium 140 mmol/L (136-145)
[2020-10-18] MEDS ORDERED: Bupivacaine PF 0.5% 30 ML VIAL ONE (11:32)
[2020-10-18] MEDS ORDERED: Midazolam HCl 2 mg/2 ml Vial ONE (11:37)
[2020-10-18] MEDS ORDERED: hydrALAZINE 20 MG/ML VIAL ONE (13:49)
--- NOTE | 2020-10-18 14:21 | RAD ---
LEFT FOOT: 10/18/20 Three views. HISTORY: Postop follow-up. Comparison made to left foot films from 2016. FINDINGS: There has been amputation of the fifth toe which was present on the prior exam. Deformity of the fift h metatarsal is stable from the prior exam. There has been excision of the distal phalanx of the thir d and fourth digits, stable from prior exam. Postoperative changes are seen at the PIP joints of the first and second digits, new since the prior exam. Degenerative changes at the MTP joints, tarsometatarsal joints, and intertarsal joints all appear sta ble. Spurring from the calcaneus appears stable. Deformity of the distal third metatarsal is stable i n appearance. IMPRESSION: Degenerative and postoperative changes of the left foot as described. POS: AH
--- NOTE | 2020-10-18 17:44 | OP ---
DATE OF PROCEDURE: 10/18/2020 PREOPERATIVE DIAGNOSES: Chronic ulceration of left great toe, contracted digits 1 and 2, left foot. POSTOPERATIVE DIAGNOSES: Chronic ulceration of left great toe, contracted digits 1 and 2, left foot. PROCEDURES PERFORMED: 1. Arthrodesis of the proximal interphalangeal joint, great toe, left foot. 2. Arthrodesis of proximal interphalangeal joint, second digit, left foot. ANESTHESIA: MAC with local foot block. HEMOSTASIS: Esmarch bandage and ankle tourniquet at 250 mmHg. ESTIMATED BLOOD LOSS: Less than 20 mL. MATERIALS: Two [id number] compression misty, one Tracy 28 headless compression screw 3.0 mm x 30 mm, 2-0 Vicryl, 4-0 Vicryl, and 3-0 nylon. INJECTABLES: 20 mL of 0.5% Marcaine plain. DESCRIPTION OF PROCEDURE: The patient was brought into the operating room and placed on the operating table in supine position. Well-padded pneumatic ankle tourniquet was placed on the patient's left ankle. Following administration of IV anesthesia, a local foot block was given utilizing 20 mL of 0.5% Marcaine plain. The foot was then scrubbed, prepped, and draped in usual aseptic manner. Esmarch bandage was used to exsanguinate the patient's left foot. The pneumatic ankle tourniquet was then inflated to 250 mmHg and increased to 300 mmHg, which did not provide adequate hemostasis, so an Esmarch bandage was used on the foot. Next, attention was then directed to the patient's left foot where a linear longitudinal incision was made over the patient's entire great toe. The incision was deepened to the level of bone with care being taken to retract all vital neurovascular structures. The joint was then prepped and two [id number] compression screws were then placed across the joint. Fluoroscopy was used to assure proper alignment. All alignment and correction were noted to be correct at this time. Next, the wound was irrigated with copious amounts of sterile normal saline mixture. The deep closure was performed utilizing 2-0 Vicryl. Subcuticular closure was performed utilizing 4-0 Vicryl and the skin was closed utilizing 3-0 nylon in a horizontal mattress suture pattern. Next, attention was then directed to the second digit where a transverse incision and tenotomy were performed at the proximal interphalangeal joint. The previously malunion was then broken utilizing a sagittal bone saw and a wedge of bone was then carefully resected straightening the digit. Next, utilizing techniques and principles of Jayna 28, a headless compression screw was driven across the proximal interphalangeal joint through an incision in the distal aspect of the digit. Fluoroscopy was used to assure proper alignment and correction. All were noted to be correct at this time. The wound was irrigated and sutured in the same technique as used in the previous incision. The foot was then cleaned and a light compressive dressing was placed about the patient's left foot on both incisions and Esmarch bandage was taken off and prompt hyperemic response was noted to all digits of the left foot. DISCHARGE SUMMARY: The patient tolerated the procedure and anesthesia and was transferred to the recovery room with vital signs stable and vascular status intact to all digits of the left foot. Following a period of postoperative monitoring, the patient is to be discharged home. Should he have any problems prior to the first postoperative appointment, he is advised to call or be seen within one week of the procedure. Job ID: [id number]
== END 2020-10-18 14:28 | disposition home or self-care (01) ==
LOC: SDC 09:11
PROVIDERS: ATTEND Podiatrist Foot & Ankle Surgery
PROC: 0SGQ04Z Fusion of Left Toe Phalangeal Joint with Internal Fixation Device, Open Approach (ICD-10-PCS; principal; 2020-10-18)
DX: E11.621 Type 2 diabetes mellitus with foot ulcer (principal); L97.529 Non-pressure chronic ulcer of other part of left foot with unspecified severity; I48.0 Paroxysmal atrial fibrillation; I13.2 Hypertensive heart and chronic kidney disease with heart failure and with stage 5 chronic kidney disease, or end stage renal disease; E11.22 Type 2 diabetes mellitus with diabetic chronic kidney disease; N18.6 End stage renal disease; I50.9 Heart failure, unspecified; E11.40 Type 2 diabetes mellitus with diabetic neuropathy, unspecified; I42.0 Dilated cardiomyopathy; E78.5 Hyperlipidemia, unspecified; G47.33 Obstructive sleep apnea (adult) (pediatric); E78.2 Mixed hyperlipidemia; Z79.4 Long term (current) use of insulin; Z79.52 Long term (current) use of systemic steroids; Z79.82 Long term (current) use of aspirin; Z79.899 Other long term (current) drug therapy; Z94.0 Kidney transplant status; Z94.1 Heart transplant status; Z95.1 Presence of aortocoronary bypass graft; Z89.422 Acquired absence of other left toe(s); Z95.810 Presence of automatic (implantable) cardiac defibrillator; Z98.84 Bariatric surgery status
CPT/HCPCS: 36415; 76000; 80048; 85025; 93005; 93010; J0360; J2250; J3370; J7030; S0020

== ENCOUNTER 2021-02-07 14:30 | Inpatient (IN) | payer BC ==
[2021-02-08 11:43] VITALS: BMI 29.7
[2021-02-12] MEDS ORDERED: Vancomycin 1.5 GRAM/300 ML BAG ONE (06:23)
[2021-02-12] MEDS ORDERED: Tranexamic Acid 1,000 MG/10 ML VIAL ONE (06:23)
[2021-02-12] MEDS ORDERED: Sodium Chloride 0.9% 100 ML ONE (06:24)
[2021-02-12] MEDS ORDERED: Fentanyl 100 MCG/2 ML VIAL ONE (06:38)
[2021-02-12] MEDS ORDERED: Midazolam HCl 2 mg/2 ml Vial ONE (06:38)
[2021-02-12] MEDS ORDERED: HYDROcodone/Acetaminophen 10/325 mg Tablet PO PRN ×3 (07:04→07:30)
[2021-02-12] MEDS ORDERED: traMADol HCl 50 MG TAB PO PRN ×4 (07:04→07:30)
[2021-02-12] MEDS ORDERED: Ondansetron PF 4 MG/2 ML Vial ONE (07:18)
[2021-02-12] MEDS ORDERED: Glycopyrrolate 0.2 MG/ML 5 ML SYRINGE ONE (07:18)
[2021-02-12] MEDS ORDERED: PHENYLEPHRINE-NS 100 MCG/ML 10 ML SYRINGE ONE (07:18)
[2021-02-12] MEDS ORDERED: ePHEDrine 50 MG/ML VIAL ONE (07:18)
[2021-02-12] MEDS ORDERED: Ketorolac Tromethamine 30 MG/ML VIAL ONE (07:18)
[2021-02-12] MEDS ORDERED: Ropivacaine 0.5% HCl/PF (150 MG/30 ML VIAL) ONE (07:18)
[2021-02-12] MEDS ORDERED: PROPOFOL 200 MG/20 ML VIAL ONE (07:18)
[2021-02-12] MEDS ORDERED: Rocuronium Bromide 10 MG/ML (10ML VIAL) ONE (07:18)
[2021-02-12] MEDS ORDERED: Ropivacaine HCl/PF 250 ML in Premix Bag 1 BAG NERVE BLCK SCH (07:30)
[2021-02-12] MEDS ORDERED: Zolpidem Tartrate 5 MG TAB PO PRN (07:30)
[2021-02-12] MEDS ORDERED: Promethazine HCl 25 MG/ML VIAL IM PRN (07:30)
[2021-02-12] MEDS ORDERED: Ondansetron PF 4 MG/2 ML Vial IVP PRN (07:30)
[2021-02-12] MEDS ORDERED: Fentanyl 100 MCG/2 ML VIAL IV PRN (07:34)
[2021-02-12] MEDS ORDERED: PROGRAF 5 MG PO SCH (09:00)
[2021-02-12] MEDS: Lantus 1000 UNITS/10 ML VIAL SC SCH (10:50)
[2021-02-12] MEDS: Docusate 100 MG CAP PO SCH ×2 (10:50→19:13)
[2021-02-12] MEDS: Magnesium Oxide 400 MG TAB PO SCH ×2 (10:50→19:13)
[2021-02-12] MEDS: Lactated Ringer's 1,000 ML IV SCH (10:50)
[2021-02-12] MEDS: Lisinopril/Hydrochlorothiazide 20/25 mg Tablet PO SCH (10:50)
[2021-02-12] MEDS: Mycophenolate 250 MG CAP PO SCH ×2 (10:50→19:12)
[2021-02-12] MEDS: predniSONE 5 MG TAB PO SCH (10:51)
[2021-02-12] MEDS: Ketorolac Tromethamine 30 MG/ML VIAL IVP SCH ×3 (11:51→23:13)
[2021-02-12] MEDS: CEFAZOLIN 2 GM in Premix Bag 1 BAG IVPB SCH ×2 (15:22→23:13)
[2021-02-12] MEDS ORDERED: Dextrose 5% in Water 1,000 ML IV PRN (17:45)
[2021-02-12] MEDS ORDERED: Dextrose 50% Abboject 50 ML SYRINGE IVP PRN (17:45)
[2021-02-12] MEDS: HumaLOG 300 UNITS/3 ML VIAL SC PRN ×2 (17:59→20:39)
[2021-02-12] MEDS: Tacrolimus 1 MG CAP PO SCH (19:12)
[2021-02-12] MEDS ORDERED: Aspirin 81 mg Enteric Coated Tablet PO SCH (21:00)
[2021-02-12] MEDS ORDERED: Atorvastatin Calcium 10 MG TAB PO SCH (21:00)
[2021-02-12] MEDS ORDERED: HumaLOG 300 UNITS/3 ML VIAL SC PRN (22:32)
[2021-02-13] MEDS: Lactated Ringer's 1,000 ML IV SCH (00:27)
[2021-02-13] MEDS: Ketorolac Tromethamine 30 MG/ML VIAL IVP SCH ×2 (05:45→11:12)
[2021-02-13] MEDS ORDERED: Cholecalciferol 1,000 UNITS (25 MCG) TAB PO SCH (09:00)
[2021-02-13] MEDS: Magnesium Oxide 400 MG TAB PO SCH (09:11)
[2021-02-13] MEDS: Docusate 100 MG CAP PO SCH (09:11)
[2021-02-13] MEDS: predniSONE 5 MG TAB PO SCH (09:11)
[2021-02-13] MEDS: Tacrolimus 1 MG CAP PO SCH (09:11)
[2021-02-13] MEDS: HYDROcodone/Acetaminophen 10/325 mg Tablet PO PRN ×2 (09:12→13:18)
[2021-02-13] MEDS: Mycophenolate 250 MG CAP PO SCH (09:12)
[2021-02-13] MEDS: Lisinopril/Hydrochlorothiazide 20/25 mg Tablet PO SCH (09:12)
[2021-02-13] MEDS: Lantus 1000 UNITS/10 ML VIAL SC SCH (09:13)
[2021-02-13] MEDS ORDERED: Ropivacaine 0.2% 550 ML 550 ML NERVE BLCK SCH (10:00)
[2021-02-13] MEDS: HumaLOG 300 UNITS/3 ML VIAL SC PRN (11:19)
[2021-02-13 11:24] VITALS: BP 103/69; TEMP 98.6
== END 2021-02-13 13:40 | disposition home or self-care (01) | DRG 483 ==
LOC: SURG A 02-12 05:32 → SJJU 02-12 10:47
PROVIDERS: ADMIT Orthopaedic Surgery; ATTEND Orthopaedic Surgery
PROC: 0RRK0JZ Replacement of Left Shoulder Joint with Synthetic Substitute, Open Approach (ICD-10-PCS; principal; 2021-02-12)
DX: S46.012A Strain of muscle(s) and tendon(s) of the rotator cuff of left shoulder, initial encounter (principal); Z94.1 Heart transplant status; Z94.0 Kidney transplant status; I42.0 Dilated cardiomyopathy; Z20.822 Contact with and (suspected) exposure to COVID-19; I48.0 Paroxysmal atrial fibrillation; I12.9 Hypertensive chronic kidney disease with stage 1 through stage 4 chronic kidney disease, or unspecified chronic kidney disease; E11.22 Type 2 diabetes mellitus with diabetic chronic kidney disease; N18.9 Chronic kidney disease, unspecified; E03.9 Hypothyroidism, unspecified; I25.10 Atherosclerotic heart disease of native coronary artery without angina pectoris; G47.33 Obstructive sleep apnea (adult) (pediatric); Z79.4 Long term (current) use of insulin; Z79.82 Long term (current) use of aspirin; Z95.1 Presence of aortocoronary bypass graft; Z95.810 Presence of automatic (implantable) cardiac defibrillator; Z93.1 Gastrostomy status; Z79.899 Other long term (current) drug therapy
CPT/HCPCS: 36416; A4306; C1713; J0690; J1815; J1885; J2250; J2405; J2704; J2795; J3010; J3370; J3490; J7507; J7512; J7517

== ENCOUNTER 2021-02-07 14:35 | Outpatient (CLI) | payer BC ==
[2021-02-07 17:50] LABS: Prothrombin Time 10.5 sec (9.5-12.1)
[2021-02-07 17:52] LABS: #Basophils 0.1 10x3/uL (0.0-0.2); #Eosinphils 0.2 10x3/uL (0.0-0.5); #Monocytes 0.7 10x3/uL (0.0-1.1); #Neutrophils 7.8 10x3/uL (1.5-8.4); %Basophils 0.6 % (0.0-2.0); %Eosinophils 1.8 % (0.0-6.0); %Lymphocytes 6.4 % (18.0-47.0); %Monocytes 7.2 % (0.0-10.0); %Neutrophils 83.6 % (40.0-75.0); Mean Corpuscular HGB CONC 32.6 g/dL (32.0-36.0); Mean Corpuscular Hemoglobin 30.2 pg (27.0-33.0); Mean Corpuscular Volume 92.7 fl (81.2-95.1); Mean Platelet Volume 10.8 fl (7.4-10.4); Platelet Count 164 10x3/uL (150-450); RBC Distribution Width 13.8 % (11.5-14.5); Red Blood Cell (RBC) Count 4.63 10x6/uL (4.32-5.72); White Blood Cell (WBC) Count 9.3 10x3/uL (3.5-10.5)
[2021-02-07 18:44] LABS: Anion Gap 14 mmol/L (10-20); BUN (Urea Nitrogen) 19 mg/dL (8.4-25.7); Calc. Creatinine Clearance 0 mL/min (70-130); Calcium 9.2 mg/dL (7.8-10.44); Carbon Dioxide 27 mmol/L (23-31); Chloride 98 mmol/L (98-107); Glucose 297 mg/dL (80-115); Potassium 4.8 mmol/L (3.5-5.1); Sodium 134 mmol/L (136-145)
[2021-02-08 00:37] LABS: SARS-CoV-2 PCR by NAA Not Detected (NotDetected)
== END 2021-02-07 14:36 | disposition home or self-care (01) ==
LOC: LABBT 14:35
PROVIDERS: ATTEND Podiatrist Foot & Ankle Surgery
DX: Z01.818 Encounter for other preprocedural examination (principal); S46.012A Strain of muscle(s) and tendon(s) of the rotator cuff of left shoulder, initial encounter; Z20.822 Contact with and (suspected) exposure to COVID-19
CPT/HCPCS: 80048; 85025; 85610; 87081; 87635; G0103; U0003; U0005

== ENCOUNTER 2023-09-04 04:53 | Inpatient (IN) | payer BC ==
[2023-09-04 05:21] LABS: #Eosinphils 0.1 thou/uL (0.0-0.7); #Monocytes 0.4 thou/uL (0.11-0.59); #Neutrophils 3.1 thou/uL (1.40-6.50); %Basophils 0.6 % (0.0-1.0); %Eosinophils 1.7 % (0.0-10.0); %Lymphocytes 33.1 % (21.0-51.0); %Monocytes 8.1 % (0.0-10.0); %Neutrophils 56.3 % (42.0-75.0); Hematocrit 47.4 % (42.0-52.0); Mean Corpuscular HGB CONC 33.8 g/dL (32.0-36.0); Mean Corpuscular Hemoglobin 29.3 pg (27.0-31.0); Mean Corpuscular Volume 86.8 fl (78.0-98.0); Mean Platelet Volume 9.3 fL (7.4-10.4); Platelet Count 126 10x3/uL (130-400); RBC Distribution Width 13.6 % (11.5-14.5); Red Blood Cell (RBC) Count 5.46 mill/uL (4.70-6.10); White Blood Cell (WBC) Count 5.4 10x3/uL (4.8-10.8)
[2023-09-04 05:52] LABS: Troponin I Less than 0.010 ng/mL (< 0.028)
[2023-09-04 05:54] LABS: ALT (SGPT) 31 U/L (8-55); AST (SGOT) 34 U/L (5-34); Albumin 4.6 g/dL (3.4-4.8); Alkaline Phosphatase 74 U/L (40-110); Anion Gap 15 mmol/L (10-20); BUN (Urea Nitrogen) 22 mg/dL (8.4-25.7); Bilirubin, Total 1.1 mg/dL (0.2-1.2); Calc. Creatinine Clearance 0 mL/min (70-130); Calcium 10.1 mg/dL (7.8-10.44); Carbon Dioxide 28 mmol/L (23-31); Chloride 97 mmol/L (98-107); Estimated GFR 73; Globulin 2.9 g/dL (2.4-3.5); Glucose 121 mg/dL (80-115); Potassium 3.7 mmol/L (3.5-5.1); Protein, Total 7.5 g/dL (5.8-8.1); Sodium 136 mmol/L (136-145)
[2023-09-04] MEDS ORDERED: Glucagon 1 MG/ML KIT IM PRN (07:50)
[2023-09-04] MEDS ORDERED: Dextrose 50% Abboject 50 ML SYRINGE SLOW IVP PRN (07:50)
[2023-09-04] MEDS ORDERED: Dextrose 5% in Water 1,000 ML IV PRN (07:50)
[2023-09-04] MEDS ORDERED: TACROLIMUS 5 MG PO SCH (09:00)
[2023-09-04 09:02] LABS: Troponin I Less than 0.010 ng/mL (< 0.028)
[2023-09-04 09:43] VITALS: BMI 30.2
[2023-09-04] MEDS: Mycophenolate 250 MG CAP PO SCH ×2 (09:59→20:43)
[2023-09-04] MEDS: Ondansetron ODT 4 MG TAB PO PRN (09:59)
[2023-09-04] MEDS: Tacrolimus 1 MG CAP PO SCH ×2 (10:00→20:43)
[2023-09-04 11:45] LABS: Troponin I Less than 0.010 ng/mL (< 0.028)
[2023-09-04] MEDS: FLU VACC QS2023-24(6MOS UP)/PF 60 MCG/0.5 ML SYRINGE IM ONE (12:18)
[2023-09-04] MEDS: Insulin Regular 300 UNITS/3 ML VIAL SC PRN ×2 (13:47→17:44)
[2023-09-04] MEDS: Mag-Al Plus 1200 MG/1200 MG/120 MG/30 ML UDCUP PO PRN (15:33)
[2023-09-04] MEDS ORDERED: Amlodipine 5 MG TAB PO SCH (15:45)
[2023-09-04] MEDS: Docusate 100 MG CAP PO SCH (20:42)
[2023-09-04] MEDS: Famotidine 20 MG TAB PO SCH (20:43)
[2023-09-04] MEDS: Acetaminophen 325 MG TAB PO PRN (20:43)
[2023-09-04] MEDS ORDERED: Pravastatin Sodium 40 MG TAB PO SCH (21:00)
[2023-09-04] MEDS ORDERED: Atorvastatin Calcium 10 MG TAB PO SCH (21:00)
[2023-09-05] MEDS: Docusate 100 MG CAP PO SCH (07:51)
[2023-09-05] MEDS: Mycophenolate 250 MG CAP PO SCH (07:54)
[2023-09-05] MEDS: Famotidine 20 MG TAB PO SCH (07:54)
[2023-09-05] MEDS: Tacrolimus 1 MG CAP PO SCH (07:54)
[2023-09-05] MEDS: Acetaminophen 325 MG TAB PO PRN (07:55)
[2023-09-05] MEDS ORDERED: Non-Formulary Item 1 EACH (Omeprazole [Omeprazole] 20 MG Capsule.Dr) PO SCH (09:00)
[2023-09-05] MEDS ORDERED: Insulin Glargine 30 UNITS/0.3 ML VIAL SC SCH (09:00)
[2023-09-05] MEDS ORDERED: Amlodipine 5 MG TAB PO SCH (09:00)
[2023-09-05] MEDS ORDERED: Losartan 25 MG TAB PO SCH (09:00)
[2023-09-05] MEDS ORDERED: predniSONE 5 MG TAB PO SCH (09:00)
[2023-09-05] MEDS ORDERED: Aspirin 81 mg Enteric Coated Tablet PO SCH (09:00)
[2023-09-05] MEDS: Ondansetron ODT 4 MG TAB PO PRN (09:20)
[2023-09-05] MEDS: Mag-Al Plus 1200 MG/1200 MG/120 MG/30 ML UDCUP PO PRN (15:18)
[2023-09-05 16:04] VITALS: BP 135/74; TEMP 98
== END 2023-09-05 17:07 | disposition home or self-care (01) | DRG 305 ==
LOC: ERS 04:53 → 2SW 07:25 → OBSVTOIN 09-05 14:27
PROVIDERS: ADMIT Internal Medicine; ATTEND Internal Medicine
DX: I16.0 Hypertensive urgency (principal); Z94.0 Kidney transplant status; Z94.1 Heart transplant status; E78.5 Hyperlipidemia, unspecified; I10 Essential (primary) hypertension; E11.9 Type 2 diabetes mellitus without complications; Z79.899 Other long term (current) drug therapy; Z95.1 Presence of aortocoronary bypass graft; Z79.82 Long term (current) use of aspirin; Z98.890 Other specified postprocedural states; Z82.49 Family history of ischemic heart disease and other diseases of the circulatory system
CPT/HCPCS: 36415; 36416; 71045; 71275; 80053; 83880; 84484; 85025; 85379; 93005; 93306; J1815; J7507; J7512; J7517; Q0162

== ENCOUNTER 2023-09-15 06:48 | Day surgery (SDC) | payer BC ==
[2023-09-12 09:22] VITALS: BMI 29.5
[2023-09-15] MEDS ORDERED: PROPOFOL 200 MG/20 ML VIAL ONE (09:04)
[2023-09-15] MEDS ORDERED: Lidocaine 1% PF 5 ML VIAL ONE (09:04)
[2023-09-15 11:06] LABS: Immunoglob - G (Total IgG) 982 mg/dL (540-1822); Immunoglob - M (Total IgM) 114 mg/dL (22-240)
[2023-09-17 08:20] LABS: HSV 1 - DNA Negative (Negative); HSV 2 - DNA Negative (Negative)
[2023-09-17 10:15] LABS: CMV log 10 Quant 5.377 (.)
== END 2023-09-15 10:30 | disposition home or self-care (01) ==
LOC: SDC 06:48
PROVIDERS: ATTEND Internal Medicine Gastroenterology
PROC: 0DB58ZX Excision of Esophagus, Via Natural or Artificial Opening Endoscopic, Diagnostic (ICD-10-PCS; principal; 2023-09-15)
PROC: 0DB68ZX Excision of Stomach, Via Natural or Artificial Opening Endoscopic, Diagnostic (ICD-10-PCS; principal; 2023-09-15)
PROC: 0DB98ZX Excision of Duodenum, Via Natural or Artificial Opening Endoscopic, Diagnostic (ICD-10-PCS; principal; 2023-09-15)
DX: K29.80 Duodenitis without bleeding (principal); K29.70 Gastritis, unspecified, without bleeding; K44.9 Diaphragmatic hernia without obstruction or gangrene; K22.10 Ulcer of esophagus without bleeding; K25.9 Gastric ulcer, unspecified as acute or chronic, without hemorrhage or perforation; B25.9 Cytomegaloviral disease, unspecified; B00.89 Other herpesviral infection; K21.9 Gastro-esophageal reflux disease without esophagitis; I11.0 Hypertensive heart disease with heart failure; I50.9 Heart failure, unspecified; I25.10 Atherosclerotic heart disease of native coronary artery without angina pectoris; Z98.84 Bariatric surgery status; Z95.0 Presence of cardiac pacemaker; Z95.1 Presence of aortocoronary bypass graft; Z79.82 Long term (current) use of aspirin; Z79.899 Other long term (current) drug therapy
CPT/HCPCS: 36415; 36416; 87497; 87529; 88305; J2704